=== PATIENT | female | born 1990 | race Caucasian/White ===

== ENCOUNTER 2024-06-17 16:03 | Outpatient (RCR) | payer OTHER, SELFPAY ==
--- NOTE | 2024-06-17 17:02 | OPREHPOC ---
Outpatient Therapy Plan of Care This is a Multidisciplinary Plan of Care that may contain components documented by all disciplines (PT, OT, and ST.) PT Problem 1 PT Problem #1 Knowledge Deficit PT Goal 1 Goal / Goal Update independent and compliant with HEP Target Visit 6 PT Problem 2 PT Problem #2 Pain PT Goal 1 Goal / Goal Update patient to report no more than 1/10 pain in the R scapula and shoulder in the last week Target Visit 12 PT Problem 3 PT Problem #3 Impaired Range of Motion PT Goal 1 Goal / Goal Update improve bilateral cervical active rotation to 80 degrees Target Visit 12 PT Problem 4 PT Problem #4 Impaired Strength PT Goal 1 Goal / Goal Update patient to hold chin tuck for 20 seconds with head off the pillow improve R hand triage clinician strength to 100lbs or more Target Visit 80 PT Problem 5 PT Problem #5 Impaired Functional Mobility PT Goal 1 Goal / Goal Update quick dash to display less than 10% functional deficits patient to report no R scapular pain or R cervical pain with daily activities patient to report 50% or more reduction of radicular symptoms to improve her quality of life Target Visit 12
--- NOTE | 2024-06-17 17:03 | PTOPEVAL1 ---
Assessment and note entered by JT File, PT Evaluation Information Assessment Status Evaluation ICD-10 Condition Codes (PT) Pain in right shoulder M25.511 Onset 05/19/24 Subjective Information patient reports she has been having pain in the R shoulder for several years. she reports her symptoms are not very straight forward. she reports last month she discovered a labral tear in the R shoulder. she also has a paralabral cyst that was drained last week. she reports she continues to have pain. she reports she has increased pain and symptoms with writing, brushing her hair, and raising the arm over head. she reports the most of her pain has been located to the scapula. she reports she does have burning in the area of the R scapula, and numbness and tingling that used to be in the thumb, index, and long finger of the R hand, but is now in the long, ring, and small finger of the R hand. she reports she has not had dedicated cervical imaging, but reports some of her MRI's have found bulging discs . 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 she reports her neck has been really stiff as well, and reports she saw a chiropractor yesterday. Reported Pain Level Pain Score 2: Self Report Assessment PT Clinical Summary mrs cates is a 33 yo woman who presents to skilled PT services for a range of R shoulder and cervical symptoms. she presents this date with bilateral shoulder ER weakness, decreased bilateral cervical rotation rom, and pain in the R UT/levator scapulae of the R shoulder. she likely suffers from a R cervical facet issue, but she has a documented tear in her R labrum and R carpal tunnel syndrome. continued skilled PT is indicated to improve her objective/functional deficits and progress towards a return to her prior level functional activity performance/ quality of life. Plan of Care Interventions Electrical Stimulation,Gait Training,Hot Pack/Cold Pack,Manual Therapy,Mechanical Traction,Neuro Re- education,Patient/Caregiver Education,Therapeutic Activities,Therapeutic Exercise PT Services Indicated Yes Treatment Frequency and 3x weekly for 12 visits Duration These treatments will address the objective and functional deficits as defined above. The patient will be advanced safely and appropriately in order for the patient to progress towards his/her prior level of function. Additional exercises will be introduced and as well as a comprehensive home exercise program upon discharge, if needed, ?to ensure carryover of functional gains achieved in the clinic. This treatment plan has been reviewed and agreement upon by the patient.
--- NOTE | 2024-06-23 17:04 | PCPTNOTE ---
On 06/23/24, the student, [Jayesh Mendoza], provided care and completed [facility] documentation on this patient. I have reviewed the student's documentation and agree with the findings.
--- NOTE | 2024-07-01 10:44 | PCPTNOTE ---
On 07/01/24, the student, [Jayesh Mendoza], provided care and completed [facility] documentation on this patient. I have reviewed the student's documentation and agree with the findings.
--- NOTE | 2024-07-02 09:40 | PCPTNOTE ---
On 07/02/24, the student, [Jayesh Mendoza], provided care and completed [facility] documentation on this patient. I have reviewed the student's documentation and agree with the findings.
== END 2024-09-15 23:59 | disposition home or self-care (01) ==
LOC: CHSPT 16:03
DX: S43.431A Superior glenoid labrum lesion of right shoulder, initial encounter (principal)
CPT/HCPCS: 97110; 97112; 97140; 97150; 97161